=== PATIENT | male | born 1975 | race Caucasian/White ===

== ENCOUNTER 2016-12-30 11:24 | Emergency (ER) | payer OTHER ==
--- NOTE | 2016-12-30 15:21 | DIAGNOSTIC IMAGING REPORT ---
PROCEDURE: CT HEAD WITHOUT CONTRAST INDICATION: HEADACHE TECHNIQUE: Axial CT images were acquired through the head. Coronal and sagittal reformations were created. COMPARISON: None. FINDINGS: No intracranial hemorrhage or extraaxial fluid collections. Ventricles are normal in size, shape and position. There is no mass, mass effect or midline shift. The lora-white matter differentiation is normal. There is no edema. The calvarium is intact. The paranasal sinuses and mastoid air cells are normally aerated. The extracranial soft tissues and orbits are normal. IMPRESSION: 1. No CT evidence of acute intracranial process. 2. Findings discussed with Dr. Saldivar at [address] scans at this facility use dose modulation, iterative reconstruction, and/or weight-based dosing when appropriate to reduce radiation dose to as low as reasonably achievable.
--- NOTE | 2016-12-30 15:48 | DIAGNOSTIC IMAGING REPORT ---
PROCEDURE: XR CHEST 2 VIEW INDICATION: CHEST PAIN TECHNIQUE: Two views. COMPARISON: None. FINDINGS: The cardiomediastinal contour and central vasculature are within normal limits. The lungs are clear without focal consolidation, pleural effusion, or pneumothorax. The visualized osseous structures are intact. IMPRESSION: 1. No acute disease.
--- NOTE | 2016-12-30 16:05 | ED CLINICAL REPORT ---
Clinical Report - Physicians/Mid Levels [facility] [address] [place] [address] 12/30/2016 11:26 Patient: ROBB MCCALLUM Time Seen: 13:08 Dec 30 2016. Arrived- By private vehicle. Historian- patient. HISTORY OF PRESENT ILLNESS Is still present. Chief Complaint: HEADACHE. This started just prior to arrival. It is described as similar to previous headaches. (Patient is with history of dizziness, sensation of room spinning around him over the last 2 weeks. Patient was seen by his primary care provider, was given meclizine. He reports surgery taking meclizine, which makes him have nausea vomiting and diarrhea, he was also seen of the [facility] [place] [facility] 3 days previously, possibly diagnosis of Mnire's disease, and has been doing home exercises. Today patient was laying on the couch, when he had sensation or room spinning around him, he had to have his child, his son assist him to get up and to the shower, which were intermittent cold shower to attempt to refresh himself, he had some weakness of his bilateral lower extremities and upper extremities at the time. Symptoms subside and improved with sitting. These are the same dizzy spells that he has been having over the last 2 weeks, which lasted a few minutes, and he usually resolve on their own. Patient denies history of similar. Patient is a taped to diabetic, on insulin, poorly controlled and poor diet, he reports he alsooften is noncompliant with his insulin.). REVIEW OF SYSTEMS No fever, sinus pressure, ear pain, diarrhea or skin rash. All systems otherwise negative, except as recorded above. PAST HISTORY Problems: Diabetes Mellitus. Additional Surgeries: Left knee. Small finger surgery . Medications: Vit D-Vit E-Safflower Oil External. Lisinopril Oral. MetFORMIN HCl ER (MOD) Oral. Levemir FlexPen Subcutaneous. Meclizine HCl Oral. Allergies: No Known Drug Allergy. SOCIAL HISTORY Never smoker. No alcohol use or drug use. ADDITIONAL NOTES The nursing notes have been reviewed. PHYSICAL EXAM Vital Signs: 12/30/2016 12:08 BP: 143/84. HR: 59. RR: 18. O2 saturation: 100%. Temp: 98.3 F. Appearance: Alert. Eyes: Pupils equal, round and reactive to light. Eyes normal inspection. ENT: Nose normal. CVS: Normal heart rate and rhythm. Heart sounds normal. Respiratory: No respiratory distress. Breath sounds normal. No decreased air movement. Abdomen: Soft. Skin: Skin warm. Normal skin color. Neuro: Oriented X 3. Alert. Mood/affect normal. Cranial nerves normal (as tested). No cerebellar findings. No motor deficit. LABS, X-RAYS, AND EKG EKG: EKG time: (1314). No acute process. No acute ischemia. Rate: 60. Normal P waves. Normal ANDRZEJ. Normal QRS complex. Normal axis. Normal ST and T waves and QT. The study has been interpreted contemporaneously. The study has been independently viewed by me. The EKG appears to be a good tracing. Laboratory Tests: CBC w Diff: (REBECCA: 12/30/2016 13:25) ( [facility] 12/30/2016 13:35) Final results Test Result Flag Units (Reference) WHITE BLOOD COUNT 8.9 K/uL (4.5-11.5) RED BLOOD COUNT 5.02 M/uL (4.50-5.90) HEMOGLOBIN 14.2 gm/dL (13.5-17.5) HEMATOCRIT 43.1 % (41.0-53.0) MEAN CELL VOLUME 86 fL (80-100) MEAN CORPUSCULAR HGB 28 pg (26-34) MEAN CORPUSCULAR HGB CONC 33 g/dL (31-37) RED CELL DISTRIBUTION WIDTH 13.1 % (11.6-14.8) PLATELET COUNT 236 K/uL (150-400) NEUTROPHIL % 71.7 % (50-75) LYMPH % 21.6 L % (25-40) MONO % 5.1 % (3-14) EOSINOPHIL % 1.2 % (0-4) BASOPHIL % 0.4 % (0-2) CHEM 13 PANEL: (REBECCA: 12/30/2016 13:25) ( [facility] 12/30/2016 13:53) Final results Test Result Flag Units (Reference) GLUCOSE 248 H mg/dL (70-110) BUN 11 mg/dL (7-18) CREATININE 0.9 mg/dL (0.6-1.3) Estimated GFR >60 mL/min Estimated GFR- >60 mL/min Note: Persistent reduction over 3 months in eGFR<60 mL/min/1.73 m2 defines CKD. Patients with eGFR values>=60 mL/min/1.73 m2 may also have CKD if evidence ofpersistent proteinuria. Additional information may be foundat www.kidney.org. SODIUM 134 L mmol/L (136-145) POTASSIUM 4.3 mmol/L (3.5-5.1) CHLORIDE 98 mmol/L (98-107) CARBON DIOXIDE 27 mmol/L (21-32) CALCIUM 8.9 mg/dL (8.5-10.1) TOTAL PROTEIN 7.2 g/dL (6.4-8.2) ALBUMIN 3.5 g/dL (3.3-5.0) BILIRUBIN, TOTAL 0.6 mg/dL (0.0-1.0) ALKALINE PHOSPHATASE 67 U/L (46-116) AST (SGOT) 19 U/L (15-37) ALT (SGPT) 37 U/L (12-78) MAGNESIUM 1.6 L mg/dL (1.8-2.4) CPK 161 U/L (24-260) TROPONIN I <0.05 ng/mL (0.00-1.5) TROPONIN REFERENCE RANGE:<0.1 NEGATIVE0.1-1.5 INDETERMINANT>1.5 POSITIVE . PROGRESS AND PROCEDURES Course of Care: Patient with dizziness, headache over the last 4 days and dizziness for 2 weeks. Symptoms improved in the emergency department with Valium and Toradol. Patient is doing well, asymptomatic. Negative narrowing exam. Negative CT of the head. Suspicion for acute meningitis, cerebral hemorrhage is extremely low. Patient is a poorly compliant type II diabetic insulin-dependent. Patient stable. 12/30/2016 16:16 BP: 125/76. HR: 88. RR: 18. O2 saturation: 98%. Temp: 98.0 F. 12/30/2016 15:02 BP: 116/80. HR: 61. RR: 16. O2 saturation: 99%. 12/30/2016 14:20 BP: 119/75. HR: 68. RR: 18. O2 saturation: 100%. Patient is stable. Physical exam findings are improved. Symptoms better. Patient/family counseled. Disposition: Discharged. CLINICAL IMPRESSION Acute vertigo of peripheral origin: benign positional vertigo. INSTRUCTIONS Do not work for two days. Warnings: Further evaluation is necessary. Prescription Medications: Valium 2 mg: take 1 orally every 8 hours for 3 days. No refill. Substitution is permissible. (#6) Follow-up: Follow up with your doctor Saturday. (Electronically signed by Desiree Saldivar P.A.-C 12/30/2016 16:28)
--- NOTE | 2016-12-30 16:05 | ED ORDER SUMMARY ---
..... Patient: ROBB MCCALLUM OrderSheet [facility] VisitID: [id number] [address] [place] [address] 41y, M Registration Date/Time: 12/30/2016 ORDER SHEET Weight: 112.4 kg (stated) Allergies: No Known Drug Allergy GENERAL ORDERS: Cardiac Panel Stat (12:50 12/30/2016 EKoroleva P.A.-C) (Ack 12:52 KHoerner) (13:58 Federico R.N.) EKG - ER Stat (12:50 12/30/2016 EKoroleva P.A.-C) (Ack 12:52 KHoerner) (13:13 PWeiler ER Tech1) CT Head wo Cont Urgent (13:54 12/30/2016 EKoroleva P.A.-C) (Ack 13:57 KHoerner) (14:38 KHoerner) Chest 2V Urgent (13:54 12/30/2016 EKoroleva P.A.-C) (Ack 13:57 KHoerner) (14:38 KHoerner) - (ambulation trial) (15:37 12/30/2016 EKoroleva P.A.-C) (16:03 PWeiler ER Tech1) MEDICATION ORDERS: IV FLUIDS: IV Saline Lock (12:50 12/30/2016 EKoroleva P.A.-C) (Ack 13:58 Federico R.N.) Valium IV 5 mg (HIGH ALERT MEDICATION, NOW) (14:03 12/30/2016 EKoroleva P.A.-C) (14:16 Federico R.N.) Reglan IV 10 mg (NOW) (14:03 12/30/2016 EKoroleva P.A.-C) (14:16 Federico R.N.) Toradol IV 30 mg (NOW) (14:03 12/30/2016 EKoroleva P.A.-C) (14:15 Federico R.N.) ORDER SHEET NOTES: [Electronically signed by Iris Hector R.N. (16:23 12/30/2016)] [Electronically signed by Desiree Saldivar P.A.-C (16:28 12/30/2016)] [Electronically locked/signed by Iris Hector R.N. (16:23 12/30/2016)]
--- NOTE | 2016-12-30 16:05 | ED ORDER SUMMARY ---
..... Patient: ROBB MCCALLUM OrderSheet [facility] VisitID: [id number] [address] [place] [address] 41y, M Registration Date/Time: 12/30/2016 ORDER SHEET Weight: 112.4 kg (stated) Allergies: No Known Drug Allergy GENERAL ORDERS: Cardiac Panel Stat (12:50 12/30/2016 EKoroleva P.A.-C) (Ack 12:52 KHoerner) (13:58 Federico R.N.) EKG - ER Stat (12:50 12/30/2016 EKoroleva P.A.-C) (Ack 12:52 KHoerner) (13:13 PWeiler ER Tech1) CT Head wo Cont Urgent (13:54 12/30/2016 EKoroleva P.A.-C) (Ack 13:57 KHoerner) (14:38 KHoerner) Chest 2V Urgent (13:54 12/30/2016 EKoroleva P.A.-C) (Ack 13:57 KHoerner) (14:38 KHoerner) - (ambulation trial) (15:37 12/30/2016 EKoroleva P.A.-C) (16:03 PWeiler ER Tech1) MEDICATION ORDERS: IV FLUIDS: IV Saline Lock (12:50 12/30/2016 EKoroleva P.A.-C) (Ack 13:58 Federico R.N.) Valium IV 5 mg (HIGH ALERT MEDICATION, NOW) (14:03 12/30/2016 EKoroleva P.A.-C) (14:16 Federico R.N.) Reglan IV 10 mg (NOW) (14:03 12/30/2016 EKoroleva P.A.-C) (14:16 Federico R.N.) Toradol IV 30 mg (NOW) (14:03 12/30/2016 EKoroleva P.A.-C) (14:15 Federico R.N.) ORDER SHEET NOTES: [Electronically signed by Iris Hector R.N. (16:23 12/30/2016)] [Electronically signed by Desiree Saldivar P.A.-C (16:28 12/30/2016)] [Electronically locked/signed by Iris Hector R.N. (16:23 12/30/2016)]
--- NOTE | 2016-12-30 16:05 | ED CLINICAL REPORT ---
Clinical Report - Physicians/Mid Levels [facility] [address] [place] [address] 12/30/2016 11:26 Patient: ROBB MCCALLUM Time Seen: 13:08 Dec 30 2016. Arrived- By private vehicle. Historian- patient. HISTORY OF PRESENT ILLNESS Is still present. Chief Complaint: HEADACHE. This started just prior to arrival. It is described as similar to previous headaches. (Patient is with history of dizziness, sensation of room spinning around him over the last 2 weeks. Patient was seen by his primary care provider, was given meclizine. He reports surgery taking meclizine, which makes him have nausea vomiting and diarrhea, he was also seen of the [place] [facility] 3 days previously, possibly diagnosis of Mnire's disease, and has been doing home exercises. Today patient was laying on the couch, when he had sensation or room spinning around him, he had to have his child, his son assist him to get up and to the shower, which were intermittent cold shower to attempt to refresh himself, he had some weakness of his bilateral lower extremities and upper extremities at the time. Symptoms subside and improved with sitting. These are the same dizzy spells that he has been having over the last 2 weeks, which lasted a few minutes, and he usually resolve on their own. Patient denies history of similar. Patient is a taped to diabetic, on insulin, poorly controlled and poor diet, he reports he alsooften is noncompliant with his insulin.). REVIEW OF SYSTEMS No fever, sinus pressure, ear pain, diarrhea or skin rash. All systems otherwise negative, except as recorded above. PAST HISTORY Problems: Diabetes Mellitus. Additional Surgeries: Left knee. Small finger surgery . Medications: Vit D-Vit E-Safflower Oil External. Lisinopril Oral. MetFORMIN HCl ER (MOD) Oral. Levemir FlexPen Subcutaneous. Meclizine HCl Oral. Allergies: No Known Drug Allergy. SOCIAL HISTORY Never smoker. No alcohol use or drug use. ADDITIONAL NOTES The nursing notes have been reviewed. PHYSICAL EXAM Vital Signs: 12/30/2016 12:08 BP: 143/84. HR: 59. RR: 18. O2 saturation: 100%. Temp: 98.3 F. Appearance: Alert. Eyes: Pupils equal, round and reactive to light. Eyes normal inspection. ENT: Nose normal. CVS: Normal heart rate and rhythm. Heart sounds normal. Respiratory: No respiratory distress. Breath sounds normal. No decreased air movement. Abdomen: Soft. Skin: Skin warm. Normal skin color. Neuro: Oriented X 3. Alert. Mood/affect normal. Cranial nerves normal (as tested). No cerebellar findings. No motor deficit. LABS, X-RAYS, AND EKG EKG: EKG time: (1314). No acute process. No acute ischemia. Rate: 60. Normal P waves. Normal ANDRZEJ. Normal QRS complex. Normal axis. Normal ST and T waves and QT. The study has been interpreted contemporaneously. The study has been independently viewed by me. The EKG appears to be a good tracing. Laboratory Tests: CBC w Diff: (REBECAC: 12/30/2016 13:25) ( [facility] 12/30/2016 13:35) Final results Test Result Flag Units (Reference) WHITE BLOOD COUNT 8.9 K/uL (4.5-11.5) RED BLOOD COUNT 5.02 M/uL (4.50-5.90) HEMOGLOBIN 14.2 gm/dL (13.5-17.5) HEMATOCRIT 43.1 % (41.0-53.0) MEAN CELL VOLUME 86 fL (80-100) MEAN CORPUSCULAR HGB 28 pg (26-34) MEAN CORPUSCULAR HGB CONC 33 g/dL (31-37) RED CELL DISTRIBUTION WIDTH 13.1 % (11.6-14.8) PLATELET COUNT 236 K/uL (150-400) NEUTROPHIL % 71.7 % (50-75) LYMPH % 21.6 L % (25-40) MONO % 5.1 % (3-14) EOSINOPHIL % 1.2 % (0-4) BASOPHIL % 0.4 % (0-2) CHEM 13 PANEL: (REBECCA: 12/30/2016 13:25) ( [facility] 12/30/2016 13:53) Final results Test Result Flag Units (Reference) GLUCOSE 248 H mg/dL (70-110) BUN 11 mg/dL (7-18) CREATININE 0.9 mg/dL (0.6-1.3) Estimated GFR >60 mL/min Estimated GFR- >60 mL/min Note: Persistent reduction over 3 months in eGFR<60 mL/min/1.73 m2 defines CKD. Patients with eGFR values>=60 mL/min/1.73 m2 may also have CKD if evidence ofpersistent proteinuria. Additional information may be foundat www.kidney.org. SODIUM 134 L mmol/L (136-145) POTASSIUM 4.3 mmol/L (3.5-5.1) CHLORIDE 98 mmol/L (98-107) CARBON DIOXIDE 27 mmol/L (21-32) CALCIUM 8.9 mg/dL (8.5-10.1) TOTAL PROTEIN 7.2 g/dL (6.4-8.2) ALBUMIN 3.5 g/dL (3.3-5.0) BILIRUBIN, TOTAL 0.6 mg/dL (0.0-1.0) ALKALINE PHOSPHATASE 67 U/L (46-116) AST (SGOT) 19 U/L (15-37) ALT (SGPT) 37 U/L (12-78) MAGNESIUM 1.6 L mg/dL (1.8-2.4) CPK 161 U/L (24-260) TROPONIN I <0.05 ng/mL (0.00-1.5) TROPONIN REFERENCE RANGE:<0.1 NEGATIVE0.1-1.5 INDETERMINANT>1.5 POSITIVE . PROGRESS AND PROCEDURES Course of Care: Patient with dizziness, headache over the last 4 days and dizziness for 2 weeks. Symptoms improved in the emergency department with Valium and Toradol. Patient is doing well, asymptomatic. Negative narrowing exam. Negative CT of the head. Suspicion for acute meningitis, cerebral hemorrhage is extremely low. Patient is a poorly compliant type II diabetic insulin-dependent. Patient stable. 12/30/2016 16:16 BP: 125/76. HR: 88. RR: 18. O2 saturation: 98%. Temp: 98.0 F. 12/30/2016 15:02 BP: 116/80. HR: 61. RR: 16. O2 saturation: 99%. 12/30/2016 14:20 BP: 119/75. HR: 68. RR: 18. O2 saturation: 100%. Patient is stable. Physical exam findings are improved. Symptoms better. Patient/family counseled. Disposition: Discharged. CLINICAL IMPRESSION Acute vertigo of peripheral origin: benign positional vertigo. INSTRUCTIONS Do not work for two days. Warnings: Further evaluation is necessary. Prescription Medications: Valium 2 mg: take 1 orally every 8 hours for 3 days. No refill. Substitution is permissible. (#6) Follow-up: Follow up with your doctor Saturday. (Electronically signed by Desiree Saldivar P.A.-C 12/30/2016 16:28)
--- NOTE | 2016-12-30 16:05 | ED NURSING NOTES ---
Clinical Report - Nurses [facility] [address] [place] [address] 12/30/2016 11:26 Patient: ORBB MCCALLUM TRIAGE Triage time 12:Dec 30 2016. Acuity: LEVEL 3. Chief Complaint: DIZZINESS and VERTIGO. FRANK COMA SCORE: Frank Coma Scale: 15- eyes open spontaneously (4); best verbal response- oriented x 4 (5); best motor response- obeys commands (6). --12:16 Iris Hector R.N. 12:08 12/30/16. BP: 143/84. HR: 59. RR: 18. O2 saturation: 100%. Temp: 98.3 F. Pain level now 4/10. --12:16 Iris Hector R.N. Weight: 112.4 kg stated. Height/Length: 76 inches Per Patient. BMI: 30.2. --12:15 Iris Hector R.N. Medications Meclizine HCl Oral. --12:11 Iris Hector R.N. Levemir FlexPen Subcutaneous. --12:11 Iris Hector R.N. MetFORMIN HCl ER (MOD) Oral. --12:11 Iris Hector R.N. Lisinopril Oral. --12:11 Iris Hector R.N. Vit D-Vit E-Safflower Oil External. --12:12 Iris Hector R.N. Allergies No Known Drug Allergy. --12:12 Iris Hector R.N. History Arrived by private vehicle. Historian: patient. Accompanied by family. This started 2 weeks. ( Patient states past two weeks having dizzy spells. Went to [facility] and received meclizine and some exercises to do at home. The medication gives him abdominal cramping and diarrhea. Patient woke up and went to watch TV and then he felt a violent spinning and he tried to slowly stand up and his legs and arms were wobbly he states he thought he was going to . Patient c/o severe headache and pressure behind ears.). He has had ear pain, a headache and weakness. No nausea, trouble walking, vomiting, fainting episodes or tinnitus. PAST MEDICAL HX: Diabetes mellitus. No history of stroke or hypertension. No history of seizures or GI bleed. Immunizations: up-to-date. SOCIAL HX: Never smoker. No alcohol use or drug use. SELF HARM ASSESSMENT: A self harm assessment was performed. The patient answered "no" to the question "Have you recently felt down, depressed, or hopeless?" and "Do you have thoughts of harming or killing yourself?". FALL RISK ASSESSMENT: Fall risk assessment completed. No fall risk identified. NUTRITIONAL RISK ASSESSMENT: The nutritional risk assessment revealed no deficiencies. FUNCTIONAL ASSESSMENT: Functional assessment: no impairments noted. LEARNING NEEDS ASSESSMENT: The learning needs assessment revealed no barriers. ABUSE ASSESSMENT: Abuse assessment: (yes) The patient was asked "Do you feel safe in your home?". SKIN INTEGRITY ASSESSMENT: Skin integrity risk assessment completed. No skin integrity risk identified. --12:16 Iris Hector R.N. PROBLEMS: Diabetes Mellitus. --12:12 Iris Hector R.N. ADDITIONAL SURGERIES: Left knee. Small finger surgery . --12:12 Iris Hector R.N. Interventions ID band on patient. --12:16 Iris Hector R.N. PHYSICAL ASSESSMENT Ambulatory to room. GENERAL / NEURO / PSYCH: Oriented X 4. Appears in no acute distress. Alert. Speech within normal limits. NIH Stroke Scale: score 0. Level of Consciousness: alert (0). LOC Questions: both (0). LOC Commands: both (0). Best gaze: normal (0). Visual field loss: none (0). Facial palsy: normal (0). Motor arm: no drift right arm (0) and no drift left arm (0). Motor leg: no drift right leg (0) and no drift left leg (0). Limb ataxia: none (0). Sensory loss: none (0). Aphasia: none (0). Dysarthria: normal (0). Extinction and inattention: none (0). HEENT: No facial asymmetry noted. Pupils equal, round and reactive to light. RESPIRATORY: Breath sounds within normal limits. Respirations not labored. CVS: Normal sinus rhythm noted. Capillary refill less than 2 seconds. GI / : Abdomen soft and nontender. SKIN: Skin is warm and dry. --12:17 Iris Hector R.N. NURSING PROGRESS NOTES Pulse oximeter and NIBP monitor placed on patient. Reassurance given. Call light placed in reach. Side rails up x 1. Bed placed in lowest position. Brakes of bed on. --12:18 Iris Hector R.N. EKG time: (1314). EKG was ordered, performed by a tech and shown to the PA. --13:14 Chung Krishnan, ISA Tech1 13:50 12/30/2016 Site #1 started via IV in the left antecubital space with an 20g angiocath. --14:15 Qi Chang R.N. 14:15 12/30/2016 Toradol IVP 30 mg given over 2 minute(s) via site #1. Allergies verified and confirmed 5 rights. IV patency established. IV site checked: no pain, redness, or swelling. IV flushed thoroughly pre- and post-medication administration. IVP given by RN. --14:15 Qi Chang R.N. 14:15 12/30/2016 Reglan (Metoclopramide HCl) IVP 10 mg given over 2 minute(s) via site #1. Allergies verified and confirmed 5 rights. IV patency established. IV site checked: no pain, redness, or swelling. IV flushed thoroughly pre- and post-medication administration. IVP given by RN. --14:16 Qi Chang R.N. 14:16 12/30/2016 Valium (Diazepam) IVP 5 mg given over 3 minute(s) via site #1. Allergies verified, confirmed 5 rights and sedative warning given to the patient. IV patency established. IV site checked: no pain, redness, or swelling. IV flushed thoroughly pre- and post-medication administration. IVP given by RN. --14:16 Qi Chang R.N. 14:20 12/30/16. BP: 119/75. HR: 68. RR: 18. O2 saturation: 100%. --14:20 Shari Stevenson R.N. 14:21 12/30/16. Pulse oximeter and NIBP monitor placed on patient. --14:21 Shari Stevenson R.N. 15:02 12/30/16. BP: 116/80. HR: 61. RR: 16. O2 saturation: 99%. Additional comments: Orthostatic vitals done. Sitting: BP 115/73 Sat 100% HR 75 Resp 16 Standing: BP 116/72 Sat 100% HR 85 Resp 20. --15:06 Chung Krishnan, Tech1 13:00 12/30/16. BP: 105/67. HR: 72. RR: 18. O2 saturation: 98%. --16:22 Iris Hector R.N. DISPOSITION / DISCHARGE Departure time: 16:Dec 30 2016. Condition at departure: improved. No learning barriers present. Discharge instructions provided and reviewed with the patient. Reviewed warnings. Reviewed medication(s). Treatments reviewed. Reviewed referrals. Patient verbalized understanding. Written instructions provided in Jordanian. The patient was discharged home and accompanied by family. He left the Emergency Department ambulatory and via private vehicle. Family member driving. --16:18 Iris Hector R.N. 16:16 12/30/16. BP: 125/76. HR: 88. RR: 18. O2 saturation: 98%. Temp: 98.0 F. Pain level now 0/10. --16:18 Iris Hector R.N. 16:18 12/30/2016 Site #1 removed upon discharge. Catheter intact. Pressure dressing applied. --16:18 Iris Hector R.N. Locked/Released at 12/30/2016 16:23 by Iris Hector R.N.
--- NOTE | 2016-12-30 16:28 | ED DISCHARGE INSTRUCTIONS ---
Patient: ROBB MCCALLUM General Instructions [facility] VisitID: [id number] [place] [address] 41y, M Registration Date/Time: 12/30/2016 Acute vertigo of peripheral origin: benign positional vertigo. INSTRUCTIONS Do not work for two days. Warnings: Further evaluation is necessary. Prescription Medications: Valium 2 mg: take 1 orally every 8 hours for 3 days. No refill. Substitution is permissible. (#6) Follow-up: Follow up with your doctor Saturday. ADDITIONAL INFORMATION Vertigo [Unknown Cause] The "inner ear" is located behind the middle ear. It is part of the balance center of your body. Disease of the inner ear causes vertigo -- a false feeling of motion. It feels as if you or the room is spinning. A vertigo attack may cause sudden nausea, vomiting and heavy sweating. Severe vertigo causes a loss of balance and can cause you to fall. During vertigo, small head movements and changes in body position will often make the symptoms worse. The causes of vertigo include: Inflammation of the inner ear Disease of the nerves to the inner ear Movement of calcium particles in the inner ear Poor blood flow to the balance centers of the brain An episode of vertigo may last seconds, minutes or hours. Once you are over the first episode, it may never return. However, sometimes symptoms may recur off and on over several weeks or longer, depending on the cause. There may be ringing in the ears or hearing loss, which may be temporary or permanent. Home Care: If symptoms are severe, rest quietly in bed. Change positions very slowly. There is usually one position that will feel best, such as lying on one side or lying on your back with your head slightly raised on pillows. Do not drive or work with dangerous machinery for one week after symptoms go away, in case the symptoms suddenly return. Take medicine as prescribed to relieve your symptoms. Unless another medicine was prescribed for nausea, vomiting and vertigo, you may use flpp-tnh-oqoqbvs motion sickness pills, such as meclizine (Bonine, Bonamine, Antivert) or dimenhydrinate (Dramamine). Follow Up with your doctor or as directed by our staff. Tell the doctor if your ears keep ringing, or if your hearing does not return to normal. Get Prompt Medical Attention if any of the following occur: Vertigo gets worse and is not controlled by medicine prescribed Repeated vomiting not relieved by medicine prescribed Increased weakness or fainting Severe headache or unusually drowsy or confused Weakness of an arm or leg or one side of the face Difficulty with speech or vision Benign Positional Vertigo The inner ear is located behind the middle ear. It is a part of the balance center of the body. It contains small calcium particles within fluid filled canals (semi-circular canals). These particles can move out of position as a result of aging, head trauma or disease of the inner ear. Once that happens, movement of the head into certain positions may cause the particles to stimulate the inner ear and create the feeling of vertigo. Vertigo is a false feeling of motion (as if you or the room is spinning). A vertigo attack may cause sudden nausea, vomiting and heavy sweating. Severe vertigo causes a loss of balance and may result in falling. During an attack of vertigo, head movement and body position changes will worsen symptoms. An episode of vertigo may last seconds, minutes or hours. Once you are over the first episode of vertigo, it may never return. Sometimes symptoms recur off and on over several weeks or longer. Home Care: If symptoms are severe, rest quietly in bed. Change positions slowly. There is usually one position that will feel best, such as lying on one side or lying on your back with your head slightly raised on pillows. Do not drive or work with dangerous machinery for one week after symptoms disappear, in case of a sudden return of symptoms. Take medicine as prescribed to relieve your symptoms. Unless another medicine was prescribed for nausea, vomiting and vertigo, you may use anac-sho-phhvipw motion sickness pills, such as meclizine (Bonine, Bonamine, Antivert) or dimenhydrinate (Dramamine). Follow Up with your doctor or as directed by our staff. Report any persistent ringing in the ear or hearing loss to your doctor. [NOTE: If you had a CT or MRI scan, it will be reviewed by a specialist. You will be notified of any new findings that may affect your care.] Get Prompt Medical Attention if any of the following occur: Worsening of vertigo not controlled by the medicine prescribed Repeated vomiting not controlled by the medicine prescribed Increased weakness or fainting Severe headache or unusual drowsiness or confusion Weakness of an arm or leg or one side of the face Difficulty with speech or vision Seizure Diazepam Oral tablet What is this medicine? DIAZEPAM (dye AZ e elaina) is a benzodiazepine. It is used to treat anxiety and nervousness. It also can help treat alcohol withdrawal, relax muscles, and treat certain types of seizures. How should I use this medicine? Take this medicine by mouth with a glass of water. Follow the directions on the prescription label. If this medicine upsets your stomach, take it with food or milk. Take your doses at regular intervals. Do not take your medicine more often than directed. If you have been taking this medicine regularly for some time, do not suddenly stop taking it. You must gradually reduce the dose or you may get severe side effects. Ask your doctor or health child care sitter for advice. Even after you stop taking this medicine it can still affect your body for several days. Talk to your bulldozer engineer regarding the use of this medicine in children. Special care may be needed. What side effects may I notice from receiving this medicine? Side effects that you should report to your doctor or health child care sitter as soon as possible: allergic reactions like skin rash, itching or hives, swelling of the face, lips, or tongue angry, confused, depressed, other mood changes breathing problems feeling faint or lightheaded, falls muscle cramps problems with balance, talking, walking restlessness tremors trouble passing urine or change in the amount of urine unusually weak or tired Side effects that usually do not require medical attention (report to your doctor or health child care sitter if they continue or are bothersome): difficulty sleeping, nightmares dizziness, drowsiness, clumsiness, or unsteadiness, a hangover effect headache nausea, vomiting What may interact with this medicine? cimetidine grapefruit juice herbal or dietary supplements like kava kava, melatonin, [place]'s Wort, or valerian medicines for anxiety or sleeping problems, like alprazolam, lorazepam, or triazolam medicines for depression, mental problems or psychiatric disturbances medicines for HIV infection or AIDS prescription pain medicines rifampin, rifapentine, or rifabutin some medicines for seizures like carbamazepine, phenobarbital, phenytoin, or primidone What if I miss a dose? If you miss a dose, take it as soon as you can. If it is almost time for your next dose, take only that dose. Do not take double or extra doses. Where should I keep my medicine? Keep out of the reach of children. This medicine can be abused. Keep your medicine in a safe place to protect it from theft. Do not share this medicine with anyone. Selling or giving away this medicine is dangerous and against the law. Store at room temperature between 15 and 30 degrees C (59 and 86 degrees F). Protect from light. Keep container tightly closed. Throw away any unused medicine after the expiration date. What should I tell my health care provider before I take this medicine? They need to know if you have any of these conditions an alcohol or drug abuse problem bipolar disorder, depression, psychosis or other mental health condition glaucoma kidney or liver disease lung or breathing disease myasthenia gravis Parkinson's disease seizures or a history of seizures suicidal thoughts an unusual or allergic reaction to diazepam, other benzodiazepines, foods, dyes, or preservatives or trying to get breast-feeding What should I watch for while using this medicine? Visit your doctor or health child care sitter for regular checks on your progress. Your body can become dependent on this medicine. Ask your doctor or health child care sitter if you still need to take it. You may get drowsy or dizzy. Do not drive, use machinery, or do anything that needs mental alertness until you know how this medicine affects you. To reduce the risk of dizzy and fainting spells, do not stand or sit up quickly, especially if you are an older patient. Alcohol may increase dizziness and drowsiness. Avoid alcoholic drinks. Do not treat yourself for coughs, colds or allergies without asking your doctor or health child care sitter for advice. Some ingredients can increase possible side effects. You have been given the following additional information: Vertigo, Unspecified Benign Positional Vertigo Diazepam Oral tablet Do not work for two days. (Electronically signed by Desiree Saldivar P.A.-C 12/30/2016 16:28)
--- NOTE | 2016-12-30 16:28 | ED MAR SUMMARY ---
..... Medication Administration Record [facility] [address] [place] [address] Patient: ROBB MCCALLUM Visit ID: [id number] 41y, M Weight: 112.4 kg Height/Length: 76 in BMI: 30.2 ALLERGIES: No Known Drug Allergy Given 14:12/30/2016 Qi Chang R.N. Medication Administered: REGLAN [IVP] (METOCLOPRAMIDE HCL), Dose: 10 mg IVP over 2 minute(s), Site: #1 left AC. Medication Ordered: Reglan IV 10 mg (NOW). Given 14:12/30/2016 Qi Chang R.N. Medication Administered: TORADOL [IVP], Dose: 30 mg IVP over 2 minute(s), Site: #1 left AC. Medication Ordered: Toradol IV 30 mg (NOW). Given 14:12/30/2016 Qi Chang RBonitaN. Medication Administered: VALIUM [IVP] (DIAZEPAM), Dose: 5 mg IVP over 3 minute(s), Site: #1 left AC. Medication Ordered: Valium IV 5 mg (HIGH ALERT MEDICATION, NOW).
--- NOTE | 2016-12-30 16:28 | ED DISCHARGE INSTRUCTIONS ---
Patient: ROBB MCCALLUM General Instructions [facility] VisitID: [id number] [place] [address] 41y, M Registration Date/Time: 12/30/2016 Acute vertigo of peripheral origin: benign positional vertigo. INSTRUCTIONS Do not work for two days. Warnings: Further evaluation is necessary. Prescription Medications: Valium 2 mg: take 1 orally every 8 hours for 3 days. No refill. Substitution is permissible. (#6) Follow-up: Follow up with your doctor Saturday. ADDITIONAL INFORMATION Vertigo [Unknown Cause] The "inner ear" is located behind the middle ear. It is part of the balance center of your body. Disease of the inner ear causes vertigo -- a false feeling of motion. It feels as if you or the room is spinning. A vertigo attack may cause sudden nausea, vomiting and heavy sweating. Severe vertigo causes a loss of balance and can cause you to fall. During vertigo, small head movements and changes in body position will often make the symptoms worse. The causes of vertigo include: Inflammation of the inner ear Disease of the nerves to the inner ear Movement of calcium particles in the inner ear Poor blood flow to the balance centers of the brain An episode of vertigo may last seconds, minutes or hours. Once you are over the first episode, it may never return. However, sometimes symptoms may recur off and on over several weeks or longer, depending on the cause. There may be ringing in the ears or hearing loss, which may be temporary or permanent. Home Care: If symptoms are severe, rest quietly in bed. Change positions very slowly. There is usually one position that will feel best, such as lying on one side or lying on your back with your head slightly raised on pillows. Do not drive or work with dangerous machinery for one week after symptoms go away, in case the symptoms suddenly return. Take medicine as prescribed to relieve your symptoms. Unless another medicine was prescribed for nausea, vomiting and vertigo, you may use enfz-jmk-tobqadu motion sickness pills, such as meclizine (Bonine, Bonamine, Antivert) or dimenhydrinate (Dramamine). Follow Up with your doctor or as directed by our staff. Tell the doctor if your ears keep ringing, or if your hearing does not return to normal. Get Prompt Medical Attention if any of the following occur: Vertigo gets worse and is not controlled by medicine prescribed Repeated vomiting not relieved by medicine prescribed Increased weakness or fainting Severe headache or unusually drowsy or confused Weakness of an arm or leg or one side of the face Difficulty with speech or vision Benign Positional Vertigo The inner ear is located behind the middle ear. It is a part of the balance center of the body. It contains small calcium particles within fluid filled canals (semi-circular canals). These particles can move out of position as a result of aging, head trauma or disease of the inner ear. Once that happens, movement of the head into certain positions may cause the particles to stimulate the inner ear and create the feeling of vertigo. Vertigo is a false feeling of motion (as if you or the room is spinning). A vertigo attack may cause sudden nausea, vomiting and heavy sweating. Severe vertigo causes a loss of balance and may result in falling. During an attack of vertigo, head movement and body position changes will worsen symptoms. An episode of vertigo may last seconds, minutes or hours. Once you are over the first episode of vertigo, it may never return. Sometimes symptoms recur off and on over several weeks or longer. Home Care: If symptoms are severe, rest quietly in bed. Change positions slowly. There is usually one position that will feel best, such as lying on one side or lying on your back with your head slightly raised on pillows. Do not drive or work with dangerous machinery for one week after symptoms disappear, in case of a sudden return of symptoms. Take medicine as prescribed to relieve your symptoms. Unless another medicine was prescribed for nausea, vomiting and vertigo, you may use yjog-usg-krsmhol motion sickness pills, such as meclizine (Bonine, Bonamine, Antivert) or dimenhydrinate (Dramamine). Follow Up with your doctor or as directed by our staff. Report any persistent ringing in the ear or hearing loss to your doctor. [NOTE: If you had a CT or MRI scan, it will be reviewed by a specialist. You will be notified of any new findings that may affect your care.] Get Prompt Medical Attention if any of the following occur: Worsening of vertigo not controlled by the medicine prescribed Repeated vomiting not controlled by the medicine prescribed Increased weakness or fainting Severe headache or unusual drowsiness or confusion Weakness of an arm or leg or one side of the face Difficulty with speech or vision Seizure Diazepam Oral tablet What is this medicine? DIAZEPAM (dye AZ e elaina) is a benzodiazepine. It is used to treat anxiety and nervousness. It also can help treat alcohol withdrawal, relax muscles, and treat certain types of seizures. How should I use this medicine? Take this medicine by mouth with a glass of water. Follow the directions on the prescription label. If this medicine upsets your stomach, take it with food or milk. Take your doses at regular intervals. Do not take your medicine more often than directed. If you have been taking this medicine regularly for some time, do not suddenly stop taking it. You must gradually reduce the dose or you may get severe side effects. Ask your doctor or health point of care technician for advice. Even after you stop taking this medicine it can still affect your body for several days. Talk to your computer technology teacher regarding the use of this medicine in children. Special care may be needed. What side effects may I notice from receiving this medicine? Side effects that you should report to your doctor or health point of care technician as soon as possible: allergic reactions like skin rash, itching or hives, swelling of the face, lips, or tongue angry, confused, depressed, other mood changes breathing problems feeling faint or lightheaded, falls muscle cramps problems with balance, talking, walking restlessness tremors trouble passing urine or change in the amount of urine unusually weak or tired Side effects that usually do not require medical attention (report to your doctor or health point of care technician if they continue or are bothersome): difficulty sleeping, nightmares dizziness, drowsiness, clumsiness, or unsteadiness, a hangover effect headache nausea, vomiting What may interact with this medicine? cimetidine grapefruit juice herbal or dietary supplements like kava kava, melatonin, [place]'s Wort, or valerian medicines for anxiety or sleeping problems, like alprazolam, lorazepam, or triazolam medicines for depression, mental problems or psychiatric disturbances medicines for HIV infection or AIDS prescription pain medicines rifampin, rifapentine, or rifabutin some medicines for seizures like carbamazepine, phenobarbital, phenytoin, or primidone What if I miss a dose? If you miss a dose, take it as soon as you can. If it is almost time for your next dose, take only that dose. Do not take double or extra doses. Where should I keep my medicine? Keep out of the reach of children. This medicine can be abused. Keep your medicine in a safe place to protect it from theft. Do not share this medicine with anyone. Selling or giving away this medicine is dangerous and against the law. Store at room temperature between 15 and 30 degrees C (59 and 86 degrees F). Protect from light. Keep container tightly closed. Throw away any unused medicine after the expiration date. What should I tell my health care provider before I take this medicine? They need to know if you have any of these conditions an alcohol or drug abuse problem bipolar disorder, depression, psychosis or other mental health condition glaucoma kidney or liver disease lung or breathing disease myasthenia gravis Parkinson's disease seizures or a history of seizures suicidal thoughts an unusual or allergic reaction to diazepam, other benzodiazepines, foods, dyes, or preservatives or trying to get breast-feeding What should I watch for while using this medicine? Visit your doctor or health point of care technician for regular checks on your progress. Your body can become dependent on this medicine. Ask your doctor or health point of care technician if you still need to take it. You may get drowsy or dizzy. Do not drive, use machinery, or do anything that needs mental alertness until you know how this medicine affects you. To reduce the risk of dizzy and fainting spells, do not stand or sit up quickly, especially if you are an older patient. Alcohol may increase dizziness and drowsiness. Avoid alcoholic drinks. Do not treat yourself for coughs, colds or allergies without asking your doctor or health point of care technician for advice. Some ingredients can increase possible side effects. You have been given the following additional information: Vertigo, Unspecified Benign Positional Vertigo Diazepam Oral tablet Do not work for two days. (Electronically signed by Desiree Saldivar P.A.-C 12/30/2016 16:28)
--- NOTE | 2016-12-30 16:28 | ED MED RECONCILIATION SUMMARY ---
Patient: ROBB MCCALLUM Medication Reconciliation Report [facility] VisitID: [id number] [place] [address] 41y, M Registration Date/Time: 12/30/2016 Weight: 112.4 kg Height/Length: 76 in. BMI: 30.2 ALLERGIES: No Known Drug Allergy The patient's Home Medications are listed below: THE FOLLOWING MEDICATIONS NEED TO BE RECONCILED: Levemir FlexPen Subcutaneous Lisinopril Oral Meclizine HCl Oral MetFORMIN HCl ER (MOD) Oral Vit D-Vit E-Safflower Oil External The source(s) of the original Home Medication information: Not obtained. The following Medications were given to the patient in the Emergency Department: Toradol [IVP] IVP 30 mg, administered: 12/30/2016 2:15:00 PM Reglan [IVP] IVP 10 mg, administered: 12/30/2016 2:15:00 PM Valium [IVP] IVP 5 mg, administered: 12/30/2016 2:16:00 PM The following Medications were prescribed to the patient: Valium 2 mg: take 1 orally every 8 hours for 3 days. No refill. Substitution is permissible.(#6) -- Desiree Saldivar P.A.-C
--- NOTE | 2016-12-30 16:28 | ED MED RECONCILIATION SUMMARY ---
Patient: ROBB MCCALLUM Medication Reconciliation Report [facility] VisitID: [id number] [place] [address] 41y, M Registration Date/Time: 12/30/2016 Weight: 112.4 kg Height/Length: 76 in. BMI: 30.2 ALLERGIES: No Known Drug Allergy The patient's Home Medications are listed below: THE FOLLOWING MEDICATIONS NEED TO BE RECONCILED: Levemir FlexPen Subcutaneous Lisinopril Oral Meclizine HCl Oral MetFORMIN HCl ER (MOD) Oral Vit D-Vit E-Safflower Oil External The source(s) of the original Home Medication information: Not obtained. The following Medications were given to the patient in the Emergency Department: Toradol [IVP] IVP 30 mg, administered: 12/30/2016 2:15:00 PM Reglan [IVP] IVP 10 mg, administered: 12/30/2016 2:15:00 PM Valium [IVP] IVP 5 mg, administered: 12/30/2016 2:16:00 PM The following Medications were prescribed to the patient: Valium 2 mg: take 1 orally every 8 hours for 3 days. No refill. Substitution is permissible.(#6) -- Desiree Saldivar P.A.-C
--- NOTE | 2016-12-30 16:28 | ED MAR SUMMARY ---
..... Medication Administration Record [facility] [address] [place] [address] Patient: ROBB MCCALLUM Visit ID: [id number] 41y, M Weight: 112.4 kg Height/Length: 76 in BMI: 30.2 ALLERGIES: No Known Drug Allergy Given 14:12/30/2016 Qi Chang R.N. Medication Administered: REGLAN [IVP] (METOCLOPRAMIDE HCL), Dose: 10 mg IVP over 2 minute(s), Site: #1 left AC. Medication Ordered: Reglan IV 10 mg (NOW). Given 14:12/30/2016 Qi Chang R.N. Medication Administered: TORADOL [IVP], Dose: 30 mg IVP over 2 minute(s), Site: #1 left AC. Medication Ordered: Toradol IV 30 mg (NOW). Given 14:12/30/2016 Qi Chang RBonitaN. Medication Administered: VALIUM [IVP] (DIAZEPAM), Dose: 5 mg IVP over 3 minute(s), Site: #1 left AC. Medication Ordered: Valium IV 5 mg (HIGH ALERT MEDICATION, NOW).
== END 2016-12-30 16:15 | disposition home or self-care (01) ==
LOC: ED SRH 11:24
DX: H81.10 Benign paroxysmal vertigo, unspecified ear (principal); H81.399 Other peripheral vertigo, unspecified ear; Z79.84 Long term (current) use of oral hypoglycemic drugs; E11.9 Type 2 diabetes mellitus without complications; Z79.899 Other long term (current) drug therapy
CPT/HCPCS: 90100; 90616; 92610; 92720; 95059